=== PATIENT | male | born 1980 | race Caucasian/White ===

== ENCOUNTER → 2019-02-18 | Outpatient (CLI) | payer BC ==
--- NOTE | 2019-02-18 16:30 | MR ---
EXAMINATION TYPE: MR angio head wo con DATE OF EXAM: 02/18/2019 COMPARISON: NONE HISTORY: Severe Headaches / R/o Aneurysm TECHNIQUE: Time of flight images focusing on the [place] of [place] were performed without contrast.. 2-D and 3-D postprocessing imaging is performed on MRI scanner and reviewed. FINDINGS: There is dominant left vertebral artery. Vertebral arteries are patent basilar junction. So me tortuous course is noted. There is no significant focal stenosis or aneurysmal change in the poste rior circulation. There are patent bilateral posterior communicating arteries seen. Images of the anterior circulation show patent anterior communicating artery. There is no significant focal stenosis or aneurysmal change identified. IMPRESSION: No aneurysmal change at the level of the [place].
--- NOTE | 2019-02-18 16:32 | MR ---
EXAMINATION TYPE: MR brain wo con DATE OF EXAM: 02/18/2019 COMPARISON: NONE HISTORY: Severe Headaches / R/o Aneurysm TECHNIQUE: Multiplanar, multisequence imaging of the brain and brainstem is performed without IV cont rast. FINDINGS: Diffusion weighted images demonstrate no evidence of a recent infarct or other diffusion abnormality. There is no extraaxial fluid collection or significant white matter signal abnormality. The ventricu lar system and cisternal spaces are normal in size and appearance. The brain volume is age appropria te. Midline structures demonstrate normal morphology. The craniocervical junction appears within normal limits. Normal vascular flow voids are present. Minimal to mild mucosal thickening involving inferior maxillary sinuses and anterior ethmoid sinuses bilaterally is present. IMPRESSION: Mild chronic ethmoid and inferior maxillary sinus disease otherwise unremarkable study
== END ==
LOC: RADMRIMAIN 12:38
PROVIDERS: ATTEND Internal Medicine
DX: R51 Headache (principal)
CPT/HCPCS: 70544; 70551

== ENCOUNTER → 2019-02-22 | Outpatient (CLI) | payer BC ==
[2019-02-22 23:29] LABS: Parathyroid Hormone Intact 151.8 pg/mL (14.0-72.0)
[2019-02-23 00:04] LABS: Vitamin D 25 Hydroxy 21.1 ng/mL (30.0-100.0)
[2019-02-23 00:05] LABS: Albumin 4.9 g/dL (3.80-4.90); Albumin/Globulin Ratio 4.08 (1.60-3.17); Anion Gap 8.9 mmol/L (4.00-12.00); Calcium 10.6 mg/dL (8.7-10.3); Carbon Dioxide 24.1 mmol/L (21.6-31.8); Globulin 1.2 g/dL (1.6-3.3); Potassium 4.1 mmol/L (3.5-5.5); Total Bilirubin 0.6 mg/dL (0.3-1.2); Total Protein 6.1 g/dL (6.2-8.2)
[2019-02-23 00:13] LABS: ACTH 8.15 pg/mL (0.00-45.99); T4, Free (Free Thyroxine) 1.1 ng/dL (0.80-1.80)
== END ==
LOC: LABWHC1 15:27
PROVIDERS: ATTEND Internal Medicine Endocrinology, Diabetes & Metabolism
DX: E21.0 Primary hyperparathyroidism (principal)
CPT/HCPCS: 36415; 80053; 82024; 82306; 82728; 83970; 84146; 84439; 84443

== ENCOUNTER → 2019-03-04 | Outpatient (CLI) | payer BC ==
--- NOTE | 2019-03-04 15:51 | US ---
EXAMINATION TYPE: US thyroid st tissue head/neck DATE OF EXAM: 03/04/2019 COMPARISON: NONE CLINICAL HISTORY: E21.0 Primary hyperparathyroidism. high calcium seen in blood work GLAND SIZE: Right Lobe: 5.8 x 2.0 x 2.4 cm Overall Parenchyma: homogenous Left Lobe: 5.4 x 2.0 x 1.4 cm Overall Parenchyma: homogeneous Isthmus Thickness: 0.7 cm NODULES RIGHT: # of nodules measured on right: 0 LEFT: # of nodules measured on left: 0 ISTHMUS: # of nodules measured in the isthmus: 0 Bilateral neck scanned, no evidence of lymphadenopathy. no parathyroid tissue seen inferiorly bilaterally IMPRESSION: Normal thyroid ultrasound.
== END ==
LOC: RADUSWWP 14:32
PROVIDERS: ATTEND Internal Medicine Endocrinology, Diabetes & Metabolism
DX: E21.0 Primary hyperparathyroidism (principal)
CPT/HCPCS: 76536

== ENCOUNTER → 2019-08-11 | Outpatient (CLI) | payer BC ==
--- NOTE | 2019-08-11 17:47 | US ---
EXAMINATION TYPE: US thyroid st tissue head/neck DATE OF EXAM: 08/11/2019 COMPARISON: US March 04, 2019 CLINICAL HISTORY: E21.0 Primary hyperparathyroidism. GLAND SIZE: Right Lobe: 5.2 x 1.7 x 1.8 cm Overall Parenchyma: homogenous Left Lobe: 4.7 x 1.8 x 1.8 cm Overall Parenchyma: homogeneous Isthmus Thickness: 0.4 cm NODULES RIGHT: # of nodules measured on right: 0 LEFT: # of nodules measured on left: 0 ISTHMUS: # of nodules measured in the isthmus: 0 Bilateral neck scanned, no evidence of lymphadenopathy. Patient has history of hyperparathyroidism with removal of right parathyroid in April. Patient feels 2 lumps under chin. The thyroid gland is normal in size without suspicious nodules. An area of suspicious abnormality the re are 2 oval well-circumscribed lesions that do not meet ultrasound characteristics for simple benig n lymph nodes. Follow-up advised. IMPRESSION: As above. Nonsimple lymph node at palpable abnormality under chin. Further investigation with contrast-enhanced neck CT or MRI is advised.
== END | disposition home or self-care (01) ==
LOC: RADUSWWP 17:02
PROVIDERS: ATTEND Internal Medicine Endocrinology, Diabetes & Metabolism
DX: R22.1 Localized swelling, mass and lump, neck (principal)
CPT/HCPCS: 76536

== ENCOUNTER → 2019-08-29 | Outpatient (CLI) | payer BC ==
--- NOTE | 2019-08-29 15:10 | CT ---
EXAMINATION TYPE: CT neck chest w con DATE OF EXAM: 08/29/2019 COMPARISON: Ultrasound of the neck dated 08/11/2019 HISTORY: Abnormal thyroid ultrasound. History of parathyroid removal. Swelling marked by BBs. CT DLP: 1563 mGycm CONTRAST: CT scan of the neck is performed with IV Contrast, patient injected with 100 mL of Isovue M300. Contrast enhanced CT of the neck was performed from the skull base through the lung apices. AIRWAY: The supraglottic, glottic, and subglottic portions of the airway appear patent and free of mass. SALIVARY GLANDS: The submandibular and parotid glands are free of mass or inflammatory process. THYROID GLAND: No nodules or masses seen. LYMPH NODES: Noted are 2 enlarged submental lymph nodes at the site of clinical concern measuring 1.5 cm and 1.2 cm respectively in short axis. No additional adenopathy is identified at this time. LUNG APICES: No nodule or mass is seen. OTHER: Vascular structures are patent. No significant degenerative change of the cervical spine. N o abscess seen. IMPRESSION: 1.Noted are 2 enlarged submental lymph nodes at the site of clinical concern measuring 1.5 cm and 1.2 cm respectively in short axis. No additional adenopathy is identified at this time. EXAMINATION TYPE: CT neck chest w con DATE OF EXAM: 08/29/2019 COMPARISON: None HISTORY: Abnormal thyroid ultrasound. History of parathyroid removal. Swelling marked by BBs. CT DLP: 1563 mGycm Automated exposure control for dose reduction was used. CONTRAST: CT scan of the chest is performed with IV Contrast, patient injected with 100 mL of Isovue M300. FINDINGS: LUNGS: The lungs are grossly clear, there is no concerning parenchymal mass or nodule identified. T here is no pleural effusion or pneumothorax seen. The tracheobronchial tree is patent. Moderate para septal emphysema noted. MEDIASTINUM: There are no greater than 1 cm hilar or mediastinal lymph nodes. No pericardial effusi on is seen. Thoracic aorta is of normal caliber. The heart is not enlarged. UPPER ABDOMEN: No significant abnormality appreciated. OTHER: No additional significant abnormality is seen. IMPRESSION: 1.Moderate paraseptal emphysema noted.
== END | disposition home or self-care (01) ==
LOC: RADCTMAIN 14:07
PROVIDERS: ATTEND Internal Medicine Endocrinology, Diabetes & Metabolism
DX: J43.9 Emphysema, unspecified (principal); R59.0 Localized enlarged lymph nodes
CPT/HCPCS: 70491; 71260; Q9967

== ENCOUNTER → 2019-12-28 | Outpatient (CLI) | payer BC ==
[2019-12-28 19:47] LABS: African American GFR (CKD) 110.9 (60.0-200.0); Albumin 4.7 g/dL (3.80-4.90); Albumin/Globulin Ratio 3.62 (1.60-3.17); Anion Gap 6.7 mmol/L (4.00-12.00); Calcium 9.5 mg/dL (8.7-10.3); Carbon Dioxide 27.3 mmol/L (21.6-31.8); Globulin 1.3 g/dL (1.6-3.3); Non-African American GFR(CKD) 95.7 (60.0-200.0); Potassium 4.4 mmol/L (3.5-5.5); Total Bilirubin 0.7 mg/dL (0.2-1.2)
== END | disposition home or self-care (01) ==
LOC: LABWHC1 14:22
PROVIDERS: ATTEND Internal Medicine Endocrinology, Diabetes & Metabolism
DX: E21.0 Primary hyperparathyroidism (principal)
CPT/HCPCS: 36415; 80053; 82306; 83970

== ENCOUNTER → 2020-07-03 | Outpatient (CLI) | payer BC ==
[2020-07-03 18:58] LABS: African American GFR (CKD) 98.9 (60.0-200.0); Albumin 4.6 g/dL (3.80-4.90); Albumin/Globulin Ratio 4.6 (1.60-3.17); Anion Gap 8.2 mmol/L (4.00-12.00); BUN/Creat Ratio 14.55 Ratio (12.00-20.00); Calcium 9.2 mg/dL (8.7-10.3); Carbon Dioxide 25.8 mmol/L (21.6-31.8); Non-African American GFR(CKD) 85.3 (60.0-200.0); Potassium 4.7 mmol/L (3.5-5.5); Total Bilirubin 0.8 mg/dL (0.2-1.2); Total Protein 5.6 g/dL (6.2-8.2)
== END | disposition home or self-care (01) ==
LOC: LABWHC1 10:24
PROVIDERS: ATTEND Internal Medicine Endocrinology, Diabetes & Metabolism
DX: E55.9 Vitamin D deficiency, unspecified (principal)
CPT/HCPCS: 36415; 80053; 82306

== ENCOUNTER → 2020-12-26 | Outpatient (CLI) | payer BC ==
--- NOTE | 2020-12-26 15:02 | US ---
EXAMINATION TYPE: US thyroid st tissue head/neck DATE OF EXAM: 12/26/2020 COMPARISON: NONE CLINICAL HISTORY: 40-year-old male Z86.39 HX PRIMARY HYPERPARATHYROIDISM. Follow-up to previous. TECHNIQUE: Multiple sonographic images of the thyroid gland are obtained. FINDINGS: GLAND SIZE: Right Lobe: 5.0 x 2.2 x 2.3 cm Overall Parenchyma: homogenous Left Lobe: 5.2 x 1.9 x 1.9 cm Overall Parenchyma: homogeneous Isthmus Thickness: .6 cm NODULES RIGHT: # of nodules measured on right: 0 LEFT: # of nodules measured on left: 0 ISTHMUS: # of nodules measured in the isthmus: 0 Bilateral neck scanned two hypoechoic areas seen under chin smaller than previous measuring 9 x 3 mm and 8 x 3 mm (previously up to 2 cm). IMPRESSION: 1. Borderline to mild thyromegaly without discrete nodule. 2. Decreasing size of submental lymph nodes currently measuring up to 9 mm versus 2 cm, previously. D ecreasing size suggests a reactive/post inflammatory etiology.
[2020-12-26 15:32] LABS: ALT 47 U/L (4-49); AST 35 U/L (17-59); African American GFR (CKD) >90 (>60 ml/min/1.73 sqM); Albumin 4.5 g/dL (3.5-5.0); Alkaline Phosphatase 61 U/L (38-126); Anion Gap 8 mmol/L; Blood Urea Nitrogen 19 mg/dL (9-20); Calcium 9.8 mg/dL (8.4-10.2); Carbon Dioxide 29 mmol/L (22-30); Chloride 102 mmol/L (98-107); Glucose 90 mg/dL (74-99); Non-African American GFR(CKD) >90 (>60 ml/min/1.73 sqM); Potassium 4.3 mmol/L (3.5-5.1); Sodium 139 mmol/L (137-145); Total Bilirubin 0.8 mg/dL (0.2-1.3); Total Protein 6.4 g/dL (6.3-8.2)
== END | disposition home or self-care (01) ==
LOC: RADUSWWP 14:01
PROVIDERS: ATTEND Internal Medicine Endocrinology, Diabetes & Metabolism
DX: E01.0 Iodine-deficiency related diffuse (endemic) goiter (principal); E55.9 Vitamin D deficiency, unspecified; Z86.39 Personal history of other endocrine, nutritional and metabolic disease
CPT/HCPCS: 76536; 80053; 82306; 83970

== ENCOUNTER → 2021-01-08 | Outpatient (CLI) | payer BC ==
--- NOTE | 2021-01-09 16:13 | US ---
EXAMINATION TYPE: US groin LT DATE OF EXAM: 01/08/2021 COMPARISON: NONE CLINICAL HISTORY: R68.89 Nodule groin area. Left inguinal palpable noted x 2 to 3 years. Left groin US at palpable: lymph node seen at palpable = 1.8 x 1.1 x 0.5cm. IMPRESSION: 1. There appears to be a lymph node present at the left inguinal region at the level of the palpable abnormality.
== END | disposition home or self-care (01) ==
LOC: RADUSWWP 16:10
PROVIDERS: ATTEND Family Medicine
DX: R68.89 Other general symptoms and signs (principal)

== ENCOUNTER → 2021-04-17 | Outpatient (CLI) | payer BC ==
--- NOTE | 2021-04-17 17:07 | US ---
EXAMINATION TYPE: US groin LT DATE OF EXAM: 04/17/2021 COMPARISON: NONE CLINICAL HISTORY: R68.89 Abnormal clinical finding. Known palpable in left groin, patient states it d oes not hurt and has not grown 1.1 x 0.8 x 0.5cm normal appearing lymph node, appears to be more superficial then node measured prev iously but today's node was right at patients area of concern. Color flow seen to the fatty hilum. Th is is likely reactive lymph node. IMPRESSION: 1. At the site of known palpable lump in the groin on the left there is a superficial lymph node joao uring 1.1 cm. This is likely reactive. Clinical follow-up to resolution could be obtained. Return to imaging as clinically indicated.
== END | disposition home or self-care (01) ==
LOC: RADUSWWP 13:28
PROVIDERS: ATTEND Family Medicine
DX: R22.42 Localized swelling, mass and lump, left lower limb (principal)

== ENCOUNTER → 2021-06-27 | Outpatient (CLI) | payer BC ==
[2021-06-28 02:16] LABS: African American GFR (CKD) 98.2 (60.0-200.0); Albumin 4.8 g/dL (3.80-4.90); Albumin/Globulin Ratio 3.43 (1.60-3.17); Anion Gap 11.9 mmol/L (4.00-12.00); BUN/Creat Ratio 14.55 Ratio (12.00-20.00); Calcium 9.7 mg/dL (8.7-10.3); Carbon Dioxide 25.1 mmol/L (21.6-31.8); Globulin 1.4 g/dL (1.6-3.3); Non-African American GFR(CKD) 84.7 (60.0-200.0); Potassium 4.3 mmol/L (3.5-5.5); Total Bilirubin 0.7 mg/dL (0.3-1.2); Total Protein 6.2 g/dL (6.2-8.2)
== END | disposition home or self-care (01) ==
LOC: LABWHC1 10:42
PROVIDERS: ATTEND Internal Medicine Endocrinology, Diabetes & Metabolism
DX: Z86.39 Personal history of other endocrine, nutritional and metabolic disease (principal)
CPT/HCPCS: 36415; 80053; 82306; 83970

== ENCOUNTER → 2021-11-12 | Outpatient (CLI) | payer BC ==
--- NOTE | 2021-11-13 07:38 | US ---
EXAMINATION TYPE: US groin LT DATE OF EXAM: 11/12/2021 COMPARISON: 04/17/2021 CLINICAL HISTORY: R19.09 OTHER INTRA-ABDOMINAL AND PELVIC SWELLING, MASS AND L. Patient states having two palpable areas in left groin. Patient states having a surgical history of undescended testicle in left groin. Patient states he has not been recently sick. Per patient, palpable at scar has been ultrasounded multiple times, the palpable in lateral left groin has not. Area of palpables scanned in left groin. 1- Palpable at scar area in left groin= No prominent mass or lesion visualized 2- Palpable at lateral left groin= Prominent lymph node visualized = 3.1 x 1.8 x 1.0 cm. IMPRESSION: Prominent lymph node left groin. Clinical follow-up until resolution could be obtained. The return to imaging as clinically indicated.
== END | disposition home or self-care (01) ==
LOC: RADUSWWP 16:52
PROVIDERS: ATTEND Surgery
DX: R19.09 Other intra-abdominal and pelvic swelling, mass and lump (principal)

== ENCOUNTER 2021-12-23 07:36 | Day surgery (SDC) | payer BC ==
[2021-12-20 10:01] VITALS: BMI 34.4
[~2021-12-23 07:36] MED LIST: ACETAMINOPHEN TAB 500 MG TAB PO PRN; HEPARIN SODIUM,PORCINE/PF 5,000 UNIT/0.5 ML SYRINGE SQ PRN
[2021-12-23] MEDS ORDERED: ONDANSETRON 4 MG/2 ML VIAL ONE (08:13)
[2021-12-23] MEDS ORDERED: LACTATED RINGERS 1,000 ML IV ONE ×2 (08:15→09:27)
[2021-12-23 08:18] VITALS: TEMP 97.7
[2021-12-23] MEDS ORDERED: ONDANSETRON 4 MG/2 ML VIAL IVP ONE (08:24)
[2021-12-23] MEDS ORDERED: SCOPOLAMINE 1.5MG/72HR PATCH TRANSDERM ONE (08:25)
[2021-12-23] MEDS ORDERED: DEXAMETHASONE SOD PHOSPHATE 4 MG/ML 1 ML VIAL IVP ONE (08:25)
[2021-12-23] MEDS ORDERED: LIDOCAINE 1% INJ 10MG/ML (20 ML MDV) ONE (08:48)
[2021-12-23] MEDS ORDERED: fentaNYL (PF) 50 MCG/ML 2 ML AMP ONE (08:48)
[2021-12-23] MEDS ORDERED: PROPOFOL 10 MG/ML 20 ML VIAL IV ONE (08:48)
[2021-12-23] MEDS ORDERED: MIDAZOLAM 2 MG/2 ML VIAL ONE (08:48)
--- NOTE | 2021-12-23 08:48 | P.GSHP ---
History of Present Illness H&P Date: 12/23/21 Chief Complaint: Left inguinal adenopathy 41-year-old male known to our service. Patient has been followed for left groin swelling. Patient with history of previous left inguinal hernia repair in the past. He has been noted to have an enlarged lymph node in the left groin. This is actually increased slightly recently with a size of 3.1 x 1.8 cm. Mild soreness at times. No night sweats. No weight loss. Past Medical History Past Medical History: Hypertension Additional Past Medical History / Comment(s): enlarged lymph node in groin History of Any Multi-Drug Resistant Organisms: None Reported Past Surgical History: Orthopedic Surgery, Tonsillectomy Additional Past Surgical History / Comment(s): parathyroid surgery, tendon repair rt wrist, surgery for undescended testicle Past Anesthesia/Blood Transfusion Reactions: Motion Sickness, Postoperative Nausea & Vomiting (PONV) Smoking Status: Former smoker - Past Family History Mother Family Medical History: No Reported History Father Family Medical History: Deep Vein Thrombosis (DVT), Pulmonary Embolus Medications and Allergies Home Medications Medication Instructions Recorded Confirmed Type Fish Oil(Dose Unknown) 1 tab PO DAILY 12/20/21 12/20/21 History Multivitamins, Thera [Multivitamin 1 tab PO DAILY 12/20/21 12/20/21 History (formulary)] hydroCHLOROthiazide [Hydrodiuril] 25 mg PO DAILY 12/20/21 12/20/21 History lisinopriL [Zestril] 20 mg PO DAILY 12/20/21 12/20/21 History Allergies Allergy/AdvReac Type Severity Reaction Status Date / Time No Known Allergies Allergy Verified 12/23/21 07:53 Surgical - Exam Vital Signs Temp Pulse Resp BP Pulse Ox 97.7 F 83 20 139/78 99 12/23/21 08:16 12/23/21 08:16 12/23/21 08:16 12/23/21 08:16 12/23/21 08:16 Physical exam: General: Well-developed, well-nourished HEENT: Normocephalic, sclerae nonicteric Abdomen: Nontender, nondistended, thickening medial aspect left inguinal hernia scar without palpable recurrent hernia, lateral to this is a 2.5 cm palpable lymph node Extremities: No edema Neuro: Alert and oriented Assessment and Plan (1) Inguinal adenopathy Narrative/Plan: 41-year-old male with left inguinal adenopathy. We'll proceed with surgical excision at this time. Risks of bleeding, infection, seroma formation, numbness, possible findings of hernia, possibly proceeding with hernia repair reviewed. He understands and wishes to proceed. Current Visit: Yes Status: Acute Code(s): R59.0 - LOCALIZED ENLARGED LYMPH NODES SNOMED Code(s): 654422978
[2021-12-23] MEDS ORDERED: BUPIVACAIN-EPI 0.25%-1:200,000 30 ML VIAL SQ ONE ×2 (09:08→09:23)
[2021-12-23] MEDS ORDERED: HYDROcodone/APAP 5-325MG 1 EACH TAB PO PRN (09:42)
[2021-12-23] MEDS ORDERED: NALOXONE 0.4 MG/ML 1 ML VIAL IV PRN (09:42)
[2021-12-23] MEDS ORDERED: ePHEDrine 50 MG/ML 1 ML VIAL IVP ONE ×3 (09:44→09:47)
--- NOTE | 2021-12-23 09:46 | P.OP ---
Date of Procedure: 12/23/21 Procedure(s) Performed: PREOPERATIVE DIAGNOSIS: Left inguinal adenopathy POSTOPERATIVE DIAGNOSIS: Same PROCEDURE: Left inguinal excisional lymph node biopsy SURGEON: Chucho EBL: Arnel Lindo ANESTHESIA: Gen. COMPLICATIONS: None OPERATIVE PROCEDURE: Patient place in the operating table in the supine position. The patient's left groin was prepped and draped sterilely. A small oblique incision was made overlying the palpable lymph node. The subcutaneous tissues were divided using electrocautery. The patient's lymph node was then excised using blunt dissection and cautery. This measured 3 x 2 cm in size. This was sent fresh to pathology at that time. No bleeding was seen. Subcutaneous tissues were closed using 20 and 3-0 Vicryl sutures. Skin was closed using a running 4-0 Monocryl suture. Skin glue and sterile dressings were then applied. DISPOSITION: Stable to recovery room
[2021-12-23] MEDS ORDERED: PHENYLEPHRINE 10 MG/ML VIAL IV ONE (09:49)
[2021-12-23 10:43] VITALS: RESP 18
[2021-12-23 11:03] VITALS: PULSE 65
[2021-12-23 11:11] VITALS: BP 117/74
== END 2021-12-23 11:22 | disposition home or self-care (01) ==
LOC: OR 07:36
PROVIDERS: ATTEND Surgery
DX: C81.90 Hodgkin lymphoma, unspecified, unspecified site (principal); E78.5 Hyperlipidemia, unspecified; E66.9 Obesity, unspecified; Z68.37 Body mass index [BMI] 37.0-37.9, adult; E21.3 Hyperparathyroidism, unspecified; Z98.890 Other specified postprocedural states; Z87.891 Personal history of nicotine dependence; Z82.49 Family history of ischemic heart disease and other diseases of the circulatory system; F41.9 Anxiety disorder, unspecified; I10 Essential (primary) hypertension; Z79.899 Other long term (current) drug therapy
CPT/HCPCS: 38500; 88342; 88307; 88341; J2250; J1100; J2370; J0690; J2405; J2001; J3010; J2704; J1644

== ENCOUNTER → 2022-01-10 | Outpatient (CLI) | payer BC ==
--- NOTE | 2022-01-13 09:52 | PE ---
EXAMINATION TYPE: PET CT fusion skull to thigh DATE OF EXAM: 01/10/2022 COMPARISON: CT neck and chest August 29, 2019. HISTORY: Hodgkin's lymphoma on biopsy left groin December 23 2021 TECHNIQUE: Following the intravenous administration of 12.05 mCi of F-18 FDG, whole body images are performed from the skull base to the midthigh. Images are reviewed on the computer in the coronal, a xial, and sagittal planes. Reconstructed rotating images are created on independent workstation and reviewed on the computer. A localization and attenuation correction CT is performed in conjunction with the PET scan. Blood glucose level equals 104. SCAN: Initial Scan FINDINGS: Mean SUV mediastinum: 1.01 Mean SUV liver: 2.04 SKULL BASE AND NECK: No areas of abnormal hypermetabolic uptake. CHEST, MEDIASTINUM, AND HILAR REGION: No areas of abnormal hypermetabolic uptake. ABDOMEN AND PELVIS: There is thin walled fluid collection left groin most likely consistent with exci sional seroma measuring 4.7 x 3.8 cm axial image 238. There are adjacent persistent slightly enlarged slightly hypermetabolic lymph nodes for reference there is 1.6 x 1.1 cm medial left groin lymph node axial image 249, max SUV is 5.23. There are hypermetabolic deep distal external iliac chain lymph no veena (there is 2.2 x 1.3 cm lymph node axial image 247, max SUV is 6.37. There are abnormal right external iliac chain lymph nodes for reference series 2.4 x 1.6 cm lymph nod e axial image to 32, next SUV is 6.04. There is abnormal 1.2 cm right common iliac chain lymph node a xial image 207, max SUV is 3.16. Abnormal right groin lymph node axial image 264 measures 2.3 x 1.4 c m, max SUV is 3.33. OSSEOUS STRUCTURES: No areas of abnormal hypermetabolic uptake. OTHER CT: Splenomegaly is present without suspicious focal hypermetabolic uptake. Liver is normal in size. IMPRESSION: Abnormal bilateral groin and pelvic adenopathy as detailed above. Splenomegaly is present without abnormal hypermetabolic uptake. No hypermetabolic adenopathy above the diaphragm.
== END | disposition home or self-care (01) ==
LOC: RADXRMAIN 08:13
PROVIDERS: ATTEND Nurse Practitioner Adult Health
DX: C81.98 Hodgkin lymphoma, unspecified, lymph nodes of multiple sites (principal)
CPT/HCPCS: 78815; A9552

== ENCOUNTER → 2022-01-15 | Outpatient (CLI) | payer BC ==
--- NOTE | 2022-01-15 20:00 | ECHOF ---
Referral Reason:Z01.818 SCREEN PREPROCEDURAL MEASUREMENTS -------- HEIGHT: 177.8 cm WEIGHT: 111.1 kg BP: RVIDd: 3.5 cm (< 3.3) IVSd: 1.2 cm (0.6 - 1.1) LVIDd: 5.6 cm (3.9 - 5.3) LVPWd: 1.2 cm (0.6 - 1.1) IVSs: 1.8 cm LVIDs: 3.4 cm LVPWs: 1.7 cm LA Diam: 3.5 cm (2.7 - 3.8) LAESV Index (A-L): 20.81 ml/m Ao Diam: 3.5 cm (2.0 - 3.7) AV Cusp: 2.6 cm (1.5 - 2.6) MV EXCURSION: 19.089 mm (> 18.000) MV EF SLOPE: 101 mm/s (70 - 150) EPSS: 0.4 cm MV E Michael: 1.06 m/s MV DecT: 163 ms MV A Michael: 0.96 m/s MV E/A Ratio: 1.11 RAP: 5.00 mmHg RVSP: 28.81 mmHg FINDINGS -------- Sinus rhythm. This was a technically good study. The left ventricular size is normal. There is borderline concentric left ventricular hypertrophy. Overall left ventricular systolic function is normal with, an EF between 60 - 65 %. The right ventricle is mildly enlarged. Normal LA size by volume 22+/-6 ml/m2. The right atrium is normal in size. Interatrial and interventricular septum intact. The aortic valve is trileaflet, and appears structurally normal. No aortic stenosis or regurgitation. The mitral valve is normal. Mild tricuspid regurgitation present. Right ventricular systolic pressure is normal at < 35 mmHg. The pulmonic valve is normal. The aortic root size is normal. IVC Not well visulized. There is no pericardial effusion. CONCLUSIONS -------- 1. The left ventricular size is normal. 2. There is borderline concentric left ventricular hypertrophy. 3. Overall left ventricular systolic function is normal with, an EF between 60 - 65 %. 4. The right ventricle is mildly enlarged. 5. Normal LA size by volume 22+/-6 ml/m2. 6. Mild tricuspid regurgitation present. 7. There is no pericardial effusion. REFRIGERATION OPERATOR: Melva Maddox RDCS
== END | disposition home or self-care (01) ==
LOC: RADECHMAIN 13:39
PROVIDERS: ATTEND Internal Medicine Hematology & Oncology
DX: Z01.818 Encounter for other preprocedural examination (principal); I07.1 Rheumatic tricuspid insufficiency
CPT/HCPCS: 93306

== ENCOUNTER → 2022-05-16 | Outpatient (CLI) | payer BC ==
--- NOTE | 2022-05-19 06:23 | PE ---
EXAMINATION TYPE: PET CT fusion skull to thigh DATE OF EXAM: 05/16/2022 COMPARISON: Prior PET/CT January 10, 2022 HISTORY: Hodgkin's lymphoma on biopsy left groin December 23 2021 TECHNIQUE: Following the intravenous administration of 12.6 mCi of F-18 FDG, whole body images are p erformed from the skull base to the midthigh. Images are reviewed on the computer in the coronal, ax ial, and sagittal planes. Reconstructed rotating images are created on independent workstation and r eviewed on the computer. A localization and attenuation correction CT is performed in conjunction w ith the PET scan. Blood glucose level equals 144. SCAN: Subsequent Scan FINDINGS: Mean SUV mediastinum: 1.08 Mean SUV liver: 2.00 SKULL BASE AND NECK: No new areas of abnormal hypermetabolic uptake. CHEST, MEDIASTINUM, AND HILAR REGION: No new areas of abnormal hypermetabolic uptake. ABDOMEN AND PELVIS: Interval marked improvement in left groin thin-walled fluid collection. There are two adjacent persistent slightly prominent lymph nodes that are currently ametabolic. Max SUV is 0.8 7. No abnormal adenopathy along the left pelvis iliac chain. No abnormal right pelvic or groin hypermetabolic adenopathy current study. Max SUV left pelvis 1.59. No enlarged lymph nodes currently seen. No new areas of abnormal hypermetabolic uptake. OSSEOUS STRUCTURES: No new areas of abnormal hypermetabolic uptake. OTHER CT: Splenomegaly is redemonstrated without new suspicious focal hypermetabolic uptake. Liver is slightly more prominent without abnormal hypermetabolic uptake. IMPRESSION: Complete positive treatment response. No new or residual areas of abnormal hypermetabolic uptake.
== END | disposition home or self-care (01) ==
LOC: RADPETMAIN 16:21
PROVIDERS: ATTEND Internal Medicine Hematology & Oncology
DX: C85.95 Non-Hodgkin lymphoma, unspecified, lymph nodes of inguinal region and lower limb (principal)
CPT/HCPCS: 78815; A9552

== ENCOUNTER → 2022-07-02 | Outpatient (CLI) | payer BC ==
[2022-07-02 11:18] LABS: African American GFR (CKD) 97.5 (60.0-200.0); Albumin 4.6 g/dL (3.8-4.9); Albumin/Globulin Ratio 2.71 (1.60-3.17); Anion Gap 11.9 mmol/L (10.00-18.00); BUN/Creat Ratio 13.27 Ratio (12.00-20.00); Blood Urea Nitrogen 14.6 mg/dL (9.0-27.0); Calcium 9.8 mg/dL (8.7-10.3); Carbon Dioxide 28.1 mmol/L (20.0-27.5); Globulin 1.7 g/dL (1.6-3.3); Non-African American GFR(CKD) 84.1 (60.0-200.0); Total Bilirubin 0.5 mg/dL (0.30-1.20); Total Protein 6.3 g/dL (6.2-8.2)
== END | disposition home or self-care (01) ==
LOC: LABWHC1 07:05
PROVIDERS: ATTEND Internal Medicine Endocrinology, Diabetes & Metabolism
DX: E21.0 Primary hyperparathyroidism (principal)
CPT/HCPCS: 36415; 80053; 82306; 83970

== ENCOUNTER → 2022-09-05 | Outpatient (CLI) | payer BC ==
--- NOTE | 2022-09-06 11:57 | PE ---
EXAMINATION TYPE: PET CT fusion skull to thigh DATE OF EXAM: 09/05/2022 CLINICAL INDICATION:Male, 41 years old with history of C81.98; TECHNIQUE: Following the intravenous administration of 11.8 mCi of F-18 FDG, whole body images are performed from the skull base to the midthigh. Images are reviewed on the computer in the coronal, a xial, and sagittal planes. Reconstructed rotating images are created on independent workstation and reviewed on the computer. A non-contrast CT is performed in conjunction with the PET scan. Glucose level 94 mg/dL COMPARISON: CT neck 08/29/2019, PET/CT 05/16/2022, FINDINGS: Mediastinal SUV mean is 1.5. Hepatic parenchyma SUV mean is 1.8. SKULL BASE AND NECK: No suspicious FDG activity. CHEST, MEDIASTINUM, AND HILAR REGION: Redemonstration of mediastinal lymph nodes which demonstrate mild increased FDG activity including si milar sizes. * Right low paratracheal max SUV 3.0, previously 2.7, 8 mm in short axis. * Region 10 L max SUV 2.5, previously 2.8 , 11 mm. * Region 7 lymph node posteriorly max SUV 2.8, previously 2.5, 12 mm. * Subcarinal max SUV 2.5 previously 2.4, 9 mm. * Right pulmonary hilum max SUV 2.6, previously 2.1. ABDOMEN AND PELVIS: No suspicious FDG activity. OSSEOUS STRUCTURES: No suspicious FDG activity. OTHER CT: Right chest [id number] with distal tip extending superiorly into the right internal jug ular vein. Scattered clonic diverticula. Mild atherosclerosis of the arterial vasculature. IMPRESSION: 1. Mixed response to the mediastinal lymph nodes with mild FDG activity. Some have increased in FDG activity was decreased.. Overall volume of the lymph nodes are similar. 2. Right chest [id number] with distal tip extending superiorly into the right internal jugular ve in.
== END | disposition home or self-care (01) ==
LOC: RADPETMAIN 11:47
PROVIDERS: ATTEND Radiology Radiation Oncology
DX: C81.1 Nodular sclerosis Hodgkin lymphoma (principal); Z87.891 Personal history of nicotine dependence
CPT/HCPCS: 78815; A9552

== ENCOUNTER 2022-11-10 08:00 | Day surgery (SDC) | payer BC ==
[2022-11-05 09:33] VITALS: BMI 33.0
[2022-11-10 08:40] VITALS: TEMP 97.8
[2022-11-10] MEDS ORDERED: ONDANSETRON 4 MG/2 ML VIAL ONE (08:43)
[2022-11-10] MEDS ORDERED: LACTATED RINGERS 1,000 ML IV ONE (08:45)
[2022-11-10] MEDS ORDERED: LIDOCAINE 1% (10MG/ML) FOR IV START INTRADERMA PRN (08:46)
[2022-11-10] MEDS ORDERED: ONDANSETRON 4 MG/2 ML VIAL IVP PRN (08:46)
[2022-11-10] MEDS ORDERED: HYDROmorphone 0.5 MG/0.5 ML SYRINGE IVP PRN (08:46)
[2022-11-10] MEDS ORDERED: LACTATED RINGERS 1,000 ML IV SCH (08:46)
[2022-11-10] MEDS ORDERED: DEXAMETHASONE SOD PHOSPHATE 4 MG/ML 1 ML VIAL IV ONE (08:46)
[2022-11-10] MEDS ORDERED: SCOPOLAMINE 1 MG/72 HR PATCH TRANSDERM ONE (08:47)
--- NOTE | 2022-11-10 09:15 | P.GSHP ---
History of Present Illness H&P Date: 11/10/22 Chief Complaint: Lymphoma 42-year-old male here today for Port-A-Cath removal. Patient had port placed earlier this year in January. Patient completed his chemotherapy and is doing well at this time. No issues with the port. Past Medical History Past Medical History: Cancer, Hypertension Additional Past Medical History / Comment(s): Hodgkins Lymphoma. History of Any Multi-Drug Resistant Organisms: None Reported Past Surgical History: Orthopedic Surgery, Tonsillectomy Additional Past Surgical History / Comment(s): Parathyroid surgery, tendon repair right wrist, surgery for undescended testicle, lymph node biopsy, port a catheter placement. Past Anesthesia/Blood Transfusion Reactions: Motion Sickness, Postoperative Nausea & Vomiting (PONV) Past Psychological History: No Psychological Hx Reported Smoking Status: Former smoker Past Alcohol Use History: Occasional Additional Past Alcohol Use History / Comment(s): Quit smoking in 2019, smoked for 15 yrs, 1 PPD. Past Drug Use History: None Reported - Past Family History Mother Family Medical History: No Reported History Father Family Medical History: Cancer, Deep Vein Thrombosis (DVT), Pulmonary Embolus Medications and Allergies Home Medications Medication Instructions Recorded Confirmed Type Fish Oil(Dose Unknown) 1 tab PO DAILY 12/20/21 11/10/22 History Multivitamins, Thera [Multivitamin 1 tab PO DAILY 12/20/21 11/10/22 History (formulary)] Lisinopril-Hctz 20-25 mg 1 tab PO DAILY 11/05/22 11/10/22 History [Zestoretic 20-25] Allergies Allergy/AdvReac Type Severity Reaction Status Date / Time No Known Allergies Allergy Verified 11/05/22 09:35 Surgical - Exam Vital Signs Temp Pulse Resp BP Pulse Ox 97.8 F 64 14 111/72 95 11/10/22 08:39 11/10/22 08:39 11/10/22 08:39 11/10/22 08:39 11/10/22 08:39 Physical exam: General: Well-developed, well-nourished HEENT: Normocephalic, sclerae nonicteric Abdomen: Nontender, nondistended Extremities: No edema Neuro: Alert and oriented Assessment and Plan (1) Lymphoma Narrative/Plan: Will proceed with Port-A-Cath removal at this time Current Visit: Yes Status: Acute Code(s): C85.90 - NON-HODGKIN LYMPHOMA, UNSPECIFIED, UNSPECIFIED SITE SNOMED Code(s): 648954288
[2022-11-10] MEDS ORDERED: SODIUM CHLORIDE 0.9% 50 ML with ceFAZolin 2,000 MG IV ONE ×2 (09:18)
[2022-11-10] MEDS ORDERED: PROPOFOL 10 MG/ML 20 ML VIAL IV ONE (09:18)
[2022-11-10] MEDS ORDERED: MIDAZOLAM 2 MG/2 ML VIAL ONE (09:18)
[2022-11-10] MEDS ORDERED: fentaNYL (PF) 50 MCG/ML 2 ML AMP ONE (09:18)
[2022-11-10] MEDS ORDERED: LIDOCAINE 1% INJ 10MG/ML (5 ML VIAL-PF) SQ ONE ×2 (09:33→09:39)
[2022-11-10] MEDS ORDERED: NALOXONE 0.4 MG/ML 1 ML VIAL IV PRN (10:02)
[2022-11-10] MEDS ORDERED: HYDROcodone/APAP 5-325MG 1 EACH TAB PO PRN (10:02)
--- NOTE | 2022-11-10 10:03 | P.OP ---
Date of Procedure: 11/10/22 Procedure(s) Performed: PREOPERATIVE DIAGNOSIS: Lymphoma POSTOPERATIVE DIAGNOSIS: Same PROCEDURE: Port-A-Cath removal SURGEON: Chucho EBL: Minimal ANESTHESIA: Sedation COMPLICATIONS: None OPERATIVE PROCEDURE: Patient was placed in the supine position. The patient was sedated per anesthesia that time. The chest was prepped and draped in the usual sterile fashion. The skin was localized with Marcaine solution. The previous incision was excised using a scalpel. The port was easily excised using accommo dation of blunt dissection sharp dissection and electrocautery. The subcutaneous tissues were reapproximated using 3-0 Vicryl sutures. The skin was reapproximated using 4-0 Monocryl sutures. Skin glue was then applied. DISPOSITION: Stable to recovery room
[2022-11-10 10:07] VITALS: RESP 16
[2022-11-10 10:36] VITALS: BP 94/64; PULSE 58
== END 2022-11-10 10:50 | disposition home or self-care (01) ==
LOC: OR 08:00
PROVIDERS: ATTEND Surgery
DX: C85.90 Non-Hodgkin lymphoma, unspecified, unspecified site (principal); I10 Essential (primary) hypertension; Z85.71 Personal history of Hodgkin lymphoma; Z98.890 Other specified postprocedural states; Z87.891 Personal history of nicotine dependence; Z86.59 Personal history of other mental and behavioral disorders; Z82.49 Family history of ischemic heart disease and other diseases of the circulatory system; Z79.899 Other long term (current) drug therapy
CPT/HCPCS: 36590; J2250; J1100; J2405; J0690; J2001; J3010; J2704; J1644

== ENCOUNTER → 2023-01-02 | Outpatient (CLI) | payer BC ==
--- NOTE | 2023-01-04 14:57 | PE ---
EXAMINATION TYPE: PET CT fusion skull to thigh DATE OF EXAM: 01/02/2023 CLINICAL INDICATION:Male, 42 years old with history of C81.98; lymphoma TECHNIQUE: Following the intravenous administration of 12.32 mCi of F-18 FDG, whole body images are performed from the skull base to the midthigh. Images are reviewed on the computer in the coronal, axial, and sagittal planes. Reconstructed rotating images are created on independent workstation and reviewed on the computer. A non-contrast CT is performed in conjunction with the PET scan. Glucose level 107 mg/dL COMPARISON: CT neck and chest 08/29/2019, PET/CT most recent 09/05/2022, FINDINGS: Mediastinal SUV mean is 1.2. Hepatic parenchyma SUV mean is 1.7. SKULL BASE AND NECK: No suspicious radiotracer activity. CHEST, MEDIASTINUM, AND HILAR REGION: Redemonstration of mediastinal lymph nodes which demonstrate mild increased FDG activity: * Right low paratracheal max SUV 3.5 and, previously 3.0, 2.7, similar at 9 mm in short axis * Region 10 L max SUV 2.5, previously 2.5, 2.8 , similar at 11 mm. * Region 7 lymph node posteriorly max SUV 2.8, previously 2.8, 2.5, similar at 12 mm. * Right pulmonary hilum max SUV 2.3, previously 2.6, 2.1. Measurements are difficult to accurately m easured due to lack of IV contrast. ABDOMEN AND PELVIS: No suspicious radiotracer activity. OSSEOUS STRUCTURES: No suspicious radiotracer activity. OTHER CT: The heart is mildly enlarged for size. Scattered colonic diverticula are present. Mild mult ilevel disc degeneration changes of the spine. Fat-containing inguinal umbilical hernia. Paraseptal a nd centrilobular emphysema changes. [id number] has been removed. IMPRESSION: 1. No significant change in size or metabolic activity FDG activity compared to immediate prior. 2. Right chest [id number] with distal tip extending superiorly into the right internal jugular ve in.
== END | disposition home or self-care (01) ==
LOC: RADPETMAIN 08:57
PROVIDERS: ATTEND Radiology Radiation Oncology
DX: C81.98 Hodgkin lymphoma, unspecified, lymph nodes of multiple sites (principal)
CPT/HCPCS: 78815; A9552

== ENCOUNTER → 2023-07-02 | Outpatient (CLI) | payer BC ==
[2023-07-02 20:28] LABS: ALT 39 U/L (10-49); AST 27 U/L (14-35); Albumin 4.9 d/dL (3.8-4.9); Albumin/Globulin Ratio 3.77 Ratio (1.60-3.17); Alkaline Phosphatase 72 U/L (41-126); BUN/Creat Ratio 15.58 Ratio (12.00-20.00); Blood Urea Nitrogen 18.7 mg/dL (9.0-27.0); Calcium 9.9 mg/dL (8.7-10.3); Carbon Dioxide 23.5 mmol/L (21.6-31.8); Chloride 103 mmol/L (96-109); Globulin 1.3 d/dL (1.6-3.3); Glucose 94 mg/dL (70-110); Potassium 4.6 mmol/L (3.5-5.5); Sodium 140 mmol/L (135-145); Total Bilirubin 0.5 mg/dL (0.3-1.2); Total Protein 6.2 d/dL (6.2-8.2)
== END | disposition home or self-care (01) ==
LOC: LABWHC1 14:31
PROVIDERS: ATTEND Internal Medicine Endocrinology, Diabetes & Metabolism
DX: E21.0 Primary hyperparathyroidism (principal)
CPT/HCPCS: 36415; 80053; 82306; 83970

== ENCOUNTER → 2023-08-20 | Outpatient (CLI) | payer BC ==
--- NOTE | 2023-08-20 11:31 | PE ---
EXAMINATION TYPE: PET CT fusion skull to thigh DATE OF EXAM: 08/20/2023 COMPARISON: No recent CT Prior PET/CT: 01/02/2023 HISTORY: Hodgkin's lymphoma TECHNIQUE: Following the intravenous administration of 10.62 mCi of F-18 FDG, whole body images are performed from the skull base to the midthigh. Images are reviewed on the computer in the coronal, a xial, and sagittal planes. Reconstructed rotating images are created on independent workstation and reviewed on the computer. A localization and attenuation correction CT is performed in conjunction with the PET scan. DLP: 1123.56 mGycm SCAN: Subsequently Blood glucose: 106 mg/dL Average Mediastinum SUV: 1.94 Average Liver SUV: 2.98 FINDINGS: NECK: No abnormal uptake THORAX: There are multiple small areas of uptake within small lymph nodes in the bilateral axilla. Mo re notable lesions would include a left axillary lymph node image 82, SUV 3.68. Right axillary tail i mage 81, SUV 3.08. Right axilla, image 77, SUV 2.62. Left peribronchial lymph node, image 88, SUV 6.7 9. Right peribronchial image 88, SUV 3.22. Right hilar node, image 90, SUV 3.77. Subcarinal activity image 93, SUV 6.9. Left axillary tail uptake image 102, SUV 5.16. Marked intense activity is within the lower axillary lymph nodes on image 90, SUV 9.41 lateral left a xilla, SUV 7.9 medial left axilla, SUV 8.83 right axilla. There are additional axillary and mediastinal foci of uptake in the lower SUV ranges the remaining akins spicious for neoplasm. ABDOMEN: 2 foci of marked uptake is within the retrocaval region, image 166, SUV 6.9 laterally and 8. 58 medially. Some periaortic lymphadenopathy may be present image 180, SUV 2.95, 2.87 PELVIS: Intense uptake is within the iliac chain lymph nodes within the pelvis, image 224, SUV on the right 7.34, SUV on the left 8.73. Couple of additional hyperintense nodules are present adjacent. Th ere is a suspicious uptake within the right inguinal region, image 238, SUV 1.83. This is more interm ediate range but appears similar to additional abnormal lymph nodes. OSSEOUS STRUCTURES: No abnormal uptake LOCALIZATION CT: COMPARISON: Findings. Developing from comparison. Previous axillary uptake has developed. Mediastinal uptake appears similar. Iliac chain uptake appears to be new. IMPRESSION: 1. Multiple new foci of punctate abnormal uptake suggestive for recurrent lymphoma. This would includ e bilateral axillary regions, bilateral iliac chain regions. 2. Periaortic, retrocaval, and mediastinal adenopathy appears persistent.
== END | disposition home or self-care (01) ==
LOC: RADPETMAIN 07:48
PROVIDERS: ATTEND Internal Medicine Hematology & Oncology
DX: C81.96 Hodgkin lymphoma, unspecified, intrapelvic lymph nodes (principal); R59.0 Localized enlarged lymph nodes
CPT/HCPCS: 78815; A9552

== ENCOUNTER 2023-08-31 12:15 | Day surgery (SDC) | payer BC ==
--- NOTE | 2023-08-31 13:37 | US ---
ULTRASOUND GUIDED CORE BIOPSY LEFT AXILLARY LYMPHADENOPATHY: CLINICAL HISTORY: Left axilla lymphadenopathy FINDINGS: The procedure was explained to the patient. The risks, complications, benefits and alternatives were discussed and any questions were answered. Informed consent was obtained. Patient was placed supin e on the ultrasound table and prepped and draped in the usual sterile fashion. Utilizing a 18 gauge core biopsy needle, six passes were made into the left axillary lymph node. Patient was stable throughout the procedure. Pathology is pending. All elements of maximal barrier technique were utilized. IMPRESSION: 1. Successful ultrasound guided left axillary lymphadenopathy core biopsy.
[2023-08-31 18:00] VITALS: BP 118/70; PULSE 77; RESP 16; TEMP 98.1
== END 2023-08-31 14:05 | disposition home or self-care (01) ==
LOC: RADPROMAIN 12:15
PROVIDERS: ATTEND Radiology Radiation Oncology
DX: C81.94 Hodgkin lymphoma, unspecified, lymph nodes of axilla and upper limb (principal)
CPT/HCPCS: 38505; 76942; 88184; 88185; 88305; 88341; 88342

== ENCOUNTER 2023-09-17 11:37 | Day surgery (SDC) | payer BC ==
[2023-09-11 12:47] VITALS: BMI 34.4
[~2023-09-17 11:37] MED LIST changes: +HYDROmorphone 0.5 MG/0.5 ML SYRINGE IVP PRN; +LACTATED RINGERS 1,000 ML IV SCH; +ONDANSETRON 4 MG/2 ML VIAL IVP ONE; +Pre Op ABX Message 1 EACH MISC MISCELLANE ONE
[2023-09-17 12:16] VITALS: TEMP 97.5
[2023-09-17] MEDS ORDERED: SCOPOLAMINE 1 MG/72 HR PATCH TRANSDERM ONE (12:36)
[2023-09-17] MEDS ORDERED: ceFAZolin 1,000 MG VIAL ONE (12:59)
[2023-09-17] MEDS ORDERED: fentaNYL (PF) 50 MCG/ML 2 ML AMP ONE (12:59)
[2023-09-17] MEDS ORDERED: LIDOCAINE 1% INJ 10MG/ML (20 ML MDV) ONE (12:59)
[2023-09-17] MEDS ORDERED: PROPOFOL 10 MG/ML 20 ML VIAL IV ONE (12:59)
[2023-09-17] MEDS ORDERED: PHENYLEPHRINE-0.9% NACL SYG 1,000 MCG/10 ML SYRINGE ONE (12:59)
[2023-09-17] MEDS ORDERED: SODIUM CHLORIDE 0.9% 100 ML BAG ONE (12:59)
[2023-09-17] MEDS ORDERED: MIDAZOLAM 2 MG/2 ML VIAL ONE (12:59)
[2023-09-17] MEDS ORDERED: HYDROmorphone (PF) 1 MG/ML ONE (12:59)
--- NOTE | 2023-09-17 12:59 | P.GSHP ---
History of Present Illness H&P Date: 09/17/23 Chief Complaint: Axillary adenopathy 43-year-old male with history of lymphoma. Patient had a recent PET scan showing suspicious lymphadenopathy. Here today for excisional biopsy left axillary lymph node. He does not feel any pain or lumps anywhere. Past Medical History Past Medical History: Cancer, Hypertension Additional Past Medical History / Comment(s): Hodgkins Lymphoma. History of Any Multi-Drug Resistant Organisms: None Reported Past Surgical History: Orthopedic Surgery, Tonsillectomy Additional Past Surgical History / Comment(s): Parathyroid surgery, tendon repair right wrist, surgery for undescended testicle, port a catheter placement/REMOVAL. excision of left groin lymph node. LYMPH NODE BX LT AXILLARY, COLONOSCOPY Past Anesthesia/Blood Transfusion Reactions: Motion Sickness, Postoperative Nausea & Vomiting (PONV) Smoking Status: Former smoker - Past Family History Father Family Medical History: Cancer, Deep Vein Thrombosis (DVT), Pulmonary Embolus Medications and Allergies Home Medications Medication Instructions Recorded Confirmed Type Fish Oil(Dose Unknown) 1 tab PO DAILY 12/20/21 09/17/23 History Multivitamins, Thera [Multivitamin 1 tab PO DAILY 12/20/21 09/17/23 History (formulary)] Lisinopril-Hctz 20-25 mg 1 tab PO DAILY 11/05/22 09/17/23 History [Zestoretic 20-25] Allergies Allergy/AdvReac Type Severity Reaction Status Date / Time No Known Allergies Allergy Verified 09/17/23 11:58 Surgical - Exam Vital Signs Temp Pulse Resp BP Pulse Ox 97.5 F L 87 18 135/82 97 09/17/23 11:57 09/17/23 11:57 09/17/23 11:57 09/17/23 11:57 09/17/23 11:57 Physical exam: General: Well-developed, well-nourished HEENT: Normocephalic, sclerae nonicteric Abdomen: Nontender, nondistended Extremities: No edema, no palpable adenopathy Neuro: Alert and oriented Assessment and Plan (1) Lymphoma Narrative/Plan: 43-year-old male with history of lymphoma. Patient with suspicious PET scan findings. We'll proceed with excisional biopsy left axillary lymph node. Risks of bleeding, infection, numbness, scarring, weakness, seroma reviewed. He understands and wishes to proceed. Current Visit: No Status: Acute Code(s): C85.90 - NON-HODGKIN LYMPHOMA, UNSPECIFIED, UNSPECIFIED SITE SNOMED Code(s): 058991963
[2023-09-17] MEDS ORDERED: SODIUM CHLORIDE 0.9% IV ONE ×2 (13:04)
[2023-09-17] MEDS ORDERED: CEFAZOLIN IV ONE ×2 (13:04)
[2023-09-17] MEDS ORDERED: LIDOCAINE 0.5%-EPI 1:200,000 50 ML VIAL SQ ONE (13:41)
[2023-09-17] MEDS ORDERED: NALOXONE 0.4 MG/ML 1 ML VIAL IV PRN (14:03)
--- NOTE | 2023-09-17 14:06 | P.OP ---
Date of Procedure: 09/17/23 Procedure(s) Performed: PREOPERATIVE DIAGNOSIS: Left axillary lymphadenopathy POSTOPERATIVE DIAGNOSIS: Same PROCEDURE: Excisional biopsy left axillary lymph node SURGEON: Chucho EBL: 2 mL ANESTHESIA: Gen. COMPLICATIONS: None OPERATIVE PROCEDURE: Patient place never table in the supine position. Left axillary region prepped and draped sterilely. Elliptical incision made along the hairline. Subcutaneous tissues divided using electrocautery. The palpable lymph node identified and fully excised using both electrocautery, blunt dissection and clip placement. No bleeding was seen. Gelfoam powder was utilized. Subcutaneous tissues closed using 3-0 Vicryl sutures. Skin closed using a running 4-0 Monocryl suture. Skin glue and sterile dressings applied. DISPOSITION: Stable to recovery room
[2023-09-17] MEDS ORDERED: LACTATED RINGERS 1,000 ML IV ONE (14:45)
[2023-09-17 15:21] VITALS: RESP 16
[2023-09-17 15:43] VITALS: BP 104/68; PULSE 74
== END 2023-09-17 15:50 | disposition home or self-care (01) ==
LOC: OR 11:37
PROVIDERS: ATTEND Surgery
DX: C81.96 Hodgkin lymphoma, unspecified, intrapelvic lymph nodes (principal); I10 Essential (primary) hypertension; Z87.891 Personal history of nicotine dependence; Z80.9 Family history of malignant neoplasm, unspecified; Z79.899 Other long term (current) drug therapy
CPT/HCPCS: 38500; 88184; 88185; 88342; 88307; 88341; J2250; J2405; J0690; J2001; J3010; J1170; J2704; J1644; J2371

== ENCOUNTER → 2023-11-19 | Outpatient (CLI) | payer BC ==
--- NOTE | 2023-11-21 16:12 | PE ---
EXAMINATION TYPE: PET CT fusion skull to thigh DATE OF EXAM: 11/19/2023 CLINICAL INDICATION:Male, 43 years old with history of C81.96 LYMPHOMA; TECHNIQUE: Following the intravenous administration of 12.0 mCi of F-18 FDG, whole body images are performed from the skull base to the midthigh. Images are reviewed on the computer in the coronal, a xial, and sagittal planes. Reconstructed rotating images are created on independent workstation and reviewed on the computer. A non-contrast CT is performed in conjunction with the PET scan. Glucose level 94 mg/dL CT DLP: 1141 mGycm, Automated exposure control for dose reduction was used. COMPARISON: CT None, PET/CT 08/20/2023, FINDINGS: Mediastinal SUV mean is 1.7. Hepatic parenchyma SUV mean is 3.1. SKULL BASE AND NECK: No suspicious radiotracer activity. * Right submental lymph nodes with increased metabolic activity max SUV 3.3, previously 3.0. CHEST, MEDIASTINUM, AND HILAR REGION: Abnormal FDG activity within lymph nodes. Examples include: * Right axilla max SUV 12.7, previously 9.8. * Left axilla max SUV 11.9 previously 9.6. * Right low paratracheal max SUV 5.7, previously 3.9. * Left 10 L max SUV 9.3, previously 7.2. * Subcarinal max SUV 6.3, Previously 7.1. * Left pulmonary hilum max SUV 6.8 previously 5.4. * Right pulmonary hilum max SUV 4.5, previously 4.4. * ABDOMEN AND PELVIS: Abnormal FDG activity within lymph nodes within the abdomen: * Right retroperitoneum is SUV 5.6, previously 14 point for additional lymph node between the inferi or vena cava and the aorta axis SUV 11.1 previously 5.2. * Right common iliac max SUV 13.4, previously 13.1. * Left common iliac max SUV 5.0, previously 4.1. * Right external iliac max SUV 12.7, previously 12.8. * Left external iliac bone max SUV 8.1, previously 8.7. MUSCULOSKELETAL STRUCTURES: No suspicious radiotracer activity. OTHER CT: Heart is mildly enlarged for size. There is paraseptal emphysema changes with increased att enuation to the background lung parenchyma. Left chest axilla surgical changes. Mild gynecomastia alonzo nges. Scattered colonic diverticula. Fat-containing umbilical hernia. IMPRESSION: Scattered metabolic reactive lymph nodes throughout the exam which a majority of which have increased in metabolic activity concerning for progression of disease.
== END | disposition home or self-care (01) ==
LOC: RADPETMAIN 07:49
PROVIDERS: ATTEND Internal Medicine Hematology & Oncology
DX: C81.96 Hodgkin lymphoma, unspecified, intrapelvic lymph nodes (principal)
CPT/HCPCS: 78815; A9552

== ENCOUNTER → 2024-07-07 | Outpatient (CLI) | payer BC ==
[2024-07-07 18:57] LABS: ALT 25 U/L (10-49); AST 19 U/L (14-35); Albumin 4.7 g/dL (3.8-4.9); Albumin/Globulin Ratio 3.36 Ratio (1.60-3.17); Alkaline Phosphatase 91 U/L (41-126); BUN/Creat Ratio 16.88 Ratio (12.00-20.00); Blood Urea Nitrogen 13.5 mg/dL (9.0-27.0); Calcium 9.8 mg/dL (8.7-10.3); Carbon Dioxide 23.5 mmol/L (21.6-31.8); Chloride 101 mmol/L (96-109); Globulin 1.4 g/dL (1.6-3.3); Glucose 110 mg/dL (70-110); Potassium 4.1 mmol/L (3.5-5.5); Sodium 140 mmol/L (135-145); Total Bilirubin 0.4 mg/dL (0.3-1.2); Total Protein 6.1 g/dL (6.2-8.2)
== END | disposition home or self-care (01) ==
LOC: LABWHC1 13:38
PROVIDERS: ATTEND Internal Medicine Endocrinology, Diabetes & Metabolism
DX: Z86.39 Personal history of other endocrine, nutritional and metabolic disease (principal)
CPT/HCPCS: 36415; 80053; 82306; 83970

== ENCOUNTER → 2024-09-09 | Outpatient (CLI) | payer BC ==
[2024-09-09 16:04] LABS: ALT 24 U/L (10-49); AST 17 U/L (14-35); Albumin 4.6 g/dL (3.8-4.9); Albumin/Globulin Ratio 3.29 Ratio (1.60-3.17); Alkaline Phosphatase 80 U/L (41-126); Blood Urea Nitrogen 12.9 mg/dL (9.0-27.0); Calcium 9.3 mg/dL (8.7-10.3); Carbon Dioxide 24.8 mmol/L (21.6-31.8); Chloride 103 mmol/L (96-109); Chol/HDL Ratio 6.26 Ratio; Globulin 1.4 g/dL (1.6-3.3); Glucose 113 mg/dL (70-110); LDL Cholesterol,Calculated 108.4 mg/dL (0.0-131.0); Potassium 4.8 mmol/L (3.5-5.5); Sodium 141 mmol/L (135-145); Total Bilirubin 0.6 mg/dL (0.3-1.2)
== END | disposition home or self-care (01) ==
LOC: LABWHC1 10:14
PROVIDERS: ATTEND Internal Medicine Endocrinology, Diabetes & Metabolism
DX: E11.9 Type 2 diabetes mellitus without complications (principal)
CPT/HCPCS: 36415; 80053; 80061; 82043; 82570; 83036; 84443